=== PATIENT | female | born 1965 | race Caucasian/White ===

== ENCOUNTER → 2023-05-05 14:43 | Outpatient (REF) | payer OTHER, SELFPAY | LOC: WDC 14:43 | PROVIDERS: ATTENDING PHYSICIAN Family Medicine | DX: Z12.31 Encounter for screening mammogram for malignant neoplasm of breast (principal) | CPT/HCPCS: 77063; 77067 ==

== ENCOUNTER → 2024-02-12 15:00 | Outpatient (REF) | payer BC, SELFPAY | LOC: CLAB 15:00 | PROVIDERS: ATTENDING PHYSICIAN Otolaryngology | DX: R09.81 Nasal congestion (principal) | CPT/HCPCS: 87070; 87147; 87186; 87205 ==

== ENCOUNTER → 2024-05-15 17:23 | Outpatient (REF) | payer BC, SELFPAY | LOC: WDC 17:23 | PROVIDERS: ATTENDING PHYSICIAN Obstetrics & Gynecology Gynecology; FAMILY PHYSICIAN Family Medicine | DX: Z12.31 Encounter for screening mammogram for malignant neoplasm of breast (principal) | CPT/HCPCS: 77063; 77067 ==

== ENCOUNTER → 2024-08-27 14:50 | Outpatient (REF) | payer BC, SELFPAY | LOC: RAD 14:50 | PROVIDERS: ATTENDING PHYSICIAN Internal Medicine Rheumatology; FAMILY PHYSICIAN Family Medicine | DX: I77.82 Antineutrophilic cytoplasmic antibody [ANCA] vasculitis (principal); M05.9 Rheumatoid arthritis with rheumatoid factor, unspecified | CPT/HCPCS: 71046 ==

== ENCOUNTER → 2024-08-28 08:49 | Outpatient (REF) | payer BC, SELFPAY | LOC: HWRAD 08:49 | PROVIDERS: ATTENDING PHYSICIAN Otolaryngology; FAMILY PHYSICIAN Family Medicine; REFERRING PHYSICIAN Internal Medicine Rheumatology | DX: J32.0 Chronic maxillary sinusitis (principal) | CPT/HCPCS: 70486 ==

== ENCOUNTER → 2024-11-07 08:02 | Outpatient (REF) | payer BC, SELFPAY | LOC: RSP 08:02 | PROVIDERS: ATTENDING PHYSICIAN Internal Medicine Rheumatology; FAMILY PHYSICIAN Family Medicine | DX: R06.09 Other forms of dyspnea (principal) | CPT/HCPCS: 88738; 94010; 94727; 94729 ==

== ENCOUNTER 2024-11-20 06:11 | Day surgery (SDC) | payer BC, SELFPAY ==
--- NOTE | 2024-11-15 14:33 | PTCARENOTE ---
Patient last took dose of Zepbound 11/14/24. Dr Foley notified. Patient is okay to proceed with procedure as planned.
[2024-11-20] VITALS (7 sets, daily range): BP systolic 112–134; BP diastolic 71–99; BMI 28.4
[2024-11-20] MEDS: TYLENOL 1000 MG PO (09:25)
[2024-11-20] MEDS: NORMOSOL-R/PLASMALYTE-A 1000 IV (09:26)
== END 2024-11-20 12:13 | disposition home or self-care (01) ==
LOC: SDS 06:11
PROVIDERS: ATTENDING PHYSICIAN Otolaryngology
DX: J34.89 Other specified disorders of nose and nasal sinuses (principal); M95.0 Acquired deformity of nose; M06.9 Rheumatoid arthritis, unspecified
CPT/HCPCS: 31237; 87070; 87075; 87205; 88305; 88313; 88342